=== PATIENT | female | born 1965 | race African-American/Black ===

== ENCOUNTER 2019-08-05 05:57 | Inpatient (IN) ==
[2019-08-05] MEDS ORDERED: NITROGLYCERIN TOP ONE (06:19)
[2019-08-05] MEDS ORDERED: ZOFRAN IV ONE (06:19)
[2019-08-05] MEDS ORDERED: APRESOLINE IV ONE (06:19)
[2019-08-05] MEDS ORDERED: MORPHINE IV ONE (06:19)
[2019-08-05] MEDS ORDERED: LABETALOL IV ONE (06:19)
--- NOTE | 2019-08-05 06:28 | EKG Report ---
Test Performed on : 08/05/2019 06:18:17 AM Test Reason : CP, HTN Blood Pressure : / mmHG Vent. Rate : 088 BPM Atrial Rate : 088 BPM P-R Int : 126 ms QRS Dur : 084 ms QT Int : 350 ms P-R-T Axes : 081 -52 113 degrees QTc Int : 423 ms Normal sinus rhythm. Biatrial enlargement Left axis deviation Pulmonary disease pattern Left ventricular hypertrophy ST & Marked T wave abnormality, consider anterolateral ischemia Abnormal ECG When compared with ECG of 03-AUG-2019 07:26, (Unconfirmed) Incomplete right bundle branch block is no longer present Unconfirmed Result
--- NOTE | 2019-08-05 06:30 | PROVIDER DOCUMENTATION ---
HPI-Chest Pain - General Chief Complaint: Chest Pain Stated Complaint: chest pain Time Seen by Provider: 08/05/19 06:06 Source: patient Allergies/Adverse Reactions: Patient Allergies Allergy/AdvReac Type Severity Reaction Status Date / Time aspirin Allergy RASH Verified 08/05/19 06:28 Home Medications: Home Medication List Medication Instructions Recorded Confirmed Last Taken Type Hydrochlorothiazide 25 mg PO DAILY #30 tab 08/03/19 08/05/19 Unknown Rx - History of Present Illness-CP Nature of Presenting Problem: C/O CP intermittent for about 3-4 days, gradually getting worse, associated with new, severe global headache and some left arm and left leg heaviness over the last 24 hours. CP is a throbbing/stabbing pain, intermittent, lasting a few seconds at the time, made worse by exertion and coughing. It is non-radiating. Cough is productive of clear/frothy sputum, no hemoptysis. No fever/chills, anastasiya sea/vomiting. Never had these symptoms before. Came to ER 2 days ago for similar symptoms, found to be very hypertensive, started on HCTZ and lisinopril. Symptoms have gradually gotten worse. No numbness/tingling. There is some shortness of breath. No orthopnea. No PND. No diaphoresis or vomiting. States whatever color drink she drinks, that is the color of her sputum. No one is sick at home. Location: reports: substernal Chest Pain Radiation: reports: no radiation Quality of Pain: reports: stabbing, throbbing Severity in ED: severe Onset/Duration: 5 days ago Timing: still present, intermittent Context/Activities at Onset: reports: light activity Modifying Factors: improves with: nothing. worse with: coughing, movement Associated Symptoms: reports: headache, shortness of breath. denies: abdominal pain, back pain, diaphoresis, dizziness, edema, fatigue, fever/chills, heartburn, nausea, rash, swelling/lump in chest, syncope, vomiting, weakness Nitro Today/Relief: no nitro taken today Aspirin Treatment Today: no aspirin today Prior Chest Pain/Cardiac Workup: reports: no prior cardiac workup Similar Symptoms Previously?: Yes (2 days ago) Recently Seen Here or By Another Healthcare Provider: Yes (2 days ago here) Review of Systems - Adult - REVIEW OF SYSTEMS - ADULT Constitutional: reports: no symptoms reported Eyes: reports: no symptoms reported Ears, Nose, Mouth & Throat: reports: no symptoms reported Cardiovascular: reports: see HPI, chest pain. denies: edema, heart murmur, irregular heart rate, orthopnea, palpitations, poor circulation, PND, syncope Respiratory: reports: see HPI, cough, dyspnea on exertion, excessive sputum production, pleurisy, shortness of breath. denies: chronic cough, hemoptysis, wheezing Gastrointestinal: reports: no symptoms reported Genitourinary: reports: no symptoms reported Musculoskeletal: reports: muscle aches (pain shooting from groin down left leg x 2 days). denies: bone pain, back pain Integumentary: reports: no symptoms reported Neurological: reports: see HPI, headache/migraines, other (heaviness to left arm and leg). denies: ataxia, dizziness/vertigo, loss of balance, numbness, paresthesia, seizure, slurred speech, syncope, tremors Psychiatric: reports: no symptoms reported Endocrine: reports: no symptoms reported Hematologic/Lymphatic: reports: no symptoms reported Allergic/Immunologic: reports: no symptoms reported All Other Systems: Reviewed and Negative Past History - Adult - PAST MEDICAL HISTORY-ADULT Review of Records: reports: Old Records Reviewed, Nursing Assessment Review, Medications Reviewed, Social history reviewed & non-contributory. Major Childhood Illnesses: reports: denies history Cardiovascular: reports: HTN Respiratory: reports: denies history Gastrointestinal: reports: denies history Obstetrical/Gynecological: reports: denies history Genitourinary: reports: denies history Musculoskeletal: reports: denies history Neurological: reports: denies history Psychiatric: reports: denies history Endocrine/Immune: reports: denies history Other Conditions: reports: denies history - PRIOR SURGERIES/PROCEDURES Surgical/Procedure History: reports: appendectomy, other (mastectomy) - IMMUNIZATION STATUS Childhood Immunizations: UTD Flu Vaccine: NUTD - FAMILY HISTORY Family History: diabetes (mother and sister), CAD over 55 yo (mother), CAD under 55yo (sister at 40), CVA/TIA (mother and sister), HTN - SOCIAL HISTORY Smoking: non-smoker Substance Use: none/never Alcohol Use Frequency: never Living Situation: family Physical Exam-General - PHYSICAL EXAM-ADULT Initial Vital Signs Reviewed: Yes (Hypertensive, tachycardic) - CONSTITUTIONAL General Appearance: alert, moderate distress, thin, anxious - EYES Eyes: PERRL/EOMI, pink conjunctivae - HEAD, EARS, NOSE, MOUTH & THROAT HENMT: normocephalic/atraumatic, moist mucous membranes, pharynx normal. negative: hearing deficit, frontal tenderness, maxillary tenderness - NECK Neck: non-tender, full range of motion, supple, normal inspection. negative: meningismus - RESPIRATORY Respiratory: chest non-tender, lungs clear, normal breath sounds, no pleuratic chest pain, no respiratory distress, no accessory muscle use - CARDIOVASCULAR Cardiovascular: normal peripheral pulses, regular rate, rhythm, no edema, no JVD , no murmur, tachycardia, gallop/S3, PMI displaced laterally - GASTROINTESTINAL (ABDOMEN) Abdominal Exam: normal bowel sounds, non tender, soft, no organomegaly, no pulsatile mass - LYMPHATIC Lymphatic: no adenopathy - MUSCULOSKELETAL Back Exam: normal inspection, no CVA tenderness, no vertebral tenderness. negative: decreased range of motion Extremity: normal range of motion, non-tender, normal gait, normal inspection, no pedal edema, no calf tenderness, normal capillary refill Peripheral Pulses: radial (R): 3+, radial (L): 3+, dorsalis-pedis (R): 2+, dorsalis-pedis (L): 2+ - SKIN Integumentary: normal color, normal turgor, warm/dry - NEUROLOGIC Neurologic: cord tire builder II-XII nml as tested, grossly normal, no motor/sensory deficits - PSYCHIATRIC Psych/Mental Status: normal mood/affect, normal thought content, normal thought process, oriented x 3, anxious - HEART Score HEART Score: History: Slightly Suspicious HEART Score: ECG: Non-Specific Repolarization Disturbance/LBBB/PM HEART Score: Age: 45-65 Years HEART Score: Risk Factors for Atherosclerotic Disease: 1 or 2 Risk Factors HEART Score: Troponin: 1-3x Normal Limit Total HEART Score:: 4 Progress - PLAN OF CARE/RESULTS Result Diagrams: 08/05/19 06:14 08/05/19 06:14 - REASSESSMENT Reassessment #1 Time Reassessed: 08:00 (. She began with N/D on TYhurs, says is not able to keep anything down. Has had a dull lower abd pain since yest, waxes, wanes, nothing makes better nor worse. She denies fever, has had a headache since Sat. Has had a sharp L upper CP, intermittent since Sat. Episodes last ~5 min, nothing makes better, nor worse. pain from it radiates to L leg. She also says that L leg feels heavy, L arm feels numb. Has had SOB and, cough with some sputum since Sat. Heart RRR, lungs clear. BS are NL) - EKG 1 Time of EKG reading by physician:: 06:20 EKG Read and Signed by:: Lucien Chavarria EKG Interpretation (*Must complete 3 of following elements*): Abnormal Rate: 88 Rhythm: NSR [place]: left QRS: poor R wave progression, LVH TN Interval: normal ST Wave: non-specific ST changes (Downward T-Waves I, aVL, V4-V6)) Prior EKG Comparison: changes noted (slight improvement of T-wave changes present 08/03/19) 2 Time of EKG reading by physician:: 08:45 EKG Read and Signed by:: Jonathon Sandoval EKG Interpretation (*Must complete 3 of following elements*): Abnormal Rate: 81 Rhythm: NSR [place]: left QRS: RBB (partial), LVH Comments: increasd T wave inversion in v2-v6 - XRAY 1 XRAY Study: Chest Impression: Normal (EXAM: CHEST-PORTABLE HISTORY: CP, SOB TECHNIQUE: Single view of the chest was performed portably. COMPARISON: 08/03/2019 FINDINGS: There is cardiomegaly.. The pulmonary vasculature is not congested. No infiltrate, effusion, or pneumothorax is appreciated. IMPRESSION: Cardiomegaly. No acute cardiopulmonary abnormality is identified. Electronically signed by Aleshia Scott 08/05/2019 8:32 AM 08/05/19 0832 [facility] erpreting Physician: Aleshia Scott MD Dictated Date/Time: 08/05/19 0831 cc: Lucien Chavarria MD; Evangelista Sánchez MD) - CT/MRI 1 CT Study: Head Impression: Normal (EXAM: CT HEAD W/O CONTRAST HISTORY: severe headache, left side feels funny, HTN TECHNIQUE: Images were obtained from the skull base to vertex without IV contrast as per standard protocol. This exam was performed using automated exposure control, adjustment of mA or kV according to patient size, and/or use of iterative reconstruction technique. COMPARISON: None. Extra-axial spaces: Normal. No hematoma is appreciated. Ventricular system /subarachnoid spaces/cisterns: Unremarkable. No hydrocephalus. No hemorrhage is appreciated. Cerebral parenchyma: Unremarkable. No hemorrhage is appreciated. Midline shift: None. Cerebellum/Brain stem: Unremarkable. Calvarium: No fracture is identified. Paranasal sinuses and mastoid air cells: No significant opacification. Visualized orbits: Normal. IMPRESSION: No acute intracranial abnormality is appreciated. Electronically signed by Aleshia Scott 08/05/2019 8:16 AM 08/05/19 0816 Interpreting Physician: Aleshia Scott MD Dictated Date/Time: 08/05/19 0815 cc: Lucien Chavarria MD; Evangelista Sánchez MD) 2 CT Study: Angiogram Impression: Normal (EXAM: CT ANGIOGRAM THORAX HISTORY: Severe accelerated HTN and CP TECHNIQUE: Images were obtained from the lung apices through bases as per standard protocol. This exam was performed using automated exposure control, adjustment of mA or kV according to patient size, and/or use of iterative reconstruction technique. 3-D postprocessing with MIPS. COMPARISON: None. FINDINGS: Mediastinum: The heart size appears normal. There is marked left ventricular wall thickening. No pericardial effusion is appreciated. No pathologically enlarged lymph nodes are identified. No aortic aneurysm. There is no evidence for aortic dissection. No hilar lymphadenopathy. Pulmonary parenchyma: No nodules or masses are appreciated. No focal infiltrates. Nonspecific increased attenuation is noted within the bilateral apices. There are linear areas of increased attenuation peripheral right upper lobe, superior left lower lobe, and left lower lobe there are nonspecific, nodular groundglass infiltrates posterior right lower. Pleura: There are no pleural effusions. Bones: No fracture or destructive lesion is identified. Images of the upper abdomen reveal marked hepatic steatosis. IMPRESSION: No evidence for aortic aneurysm or dissection. Marked left ventricular hypertrophy. Groundglass, nodular infiltrate right lower lobe. Marked hepatic steatosis . Electronically signed by Aleshia Scott 08/05/2019 8:24 AM 08/05/19 0824 Interpreting Physician: Aleshia Scott MD Dictated Date/Time: 08/05/19 0817 cc: Lucien Chavarria MD; Evangelista Sánchez MD) - CONSULTS/PCP/HOSPITALIST Notification #1 *Consult/PCP/Hospitalist*: Rogers Time Discussed: 10:55 Consult Disposition: Will see in ED - CHANGE OF SHIFT REPORT (ED Provider) 1 Report Given and Care Transferred to:: Dr. Sandoval Time of Transfer: 07:00 Items Pending: Labs, XRAY Results, CT/MRI Results, Other (control of BP) Departure - Departure Date of Disposition Decision: 08/05/19 Time of Disposition Decision: 10:55 DIAGNOSIS: Chest pain Qualifiers: Chest pain type: unspecified Qualified Code(s): R07.9 - Chest pain, unspecified Hypertension Qualifiers: Hypertension type: unspecified Qualified Code(s): I10 - Essential (primary) hypertension Rhabdomyolysis Qualifiers: Rhabdomyolysis type: non-traumatic Qualified Code(s): M62.82 - Rhabdomyolysis Disposition: ADMITTED INPATIENT 09 Certified Medical Emergency: Emergent Condition: Good - Critical Care Note This patient required my direct & personal management of CC.: No Attestation - Physician/ PANCHO Attestation Patient care was provided by Advanced Practice Provider:: No The physician spent face to face time with patient:: Yes Advanced Practice Provider documentation review:: Supervising physician onsite and consulted in the evaluation and care of this patient. The physician did have a face to face encounter with the patient. - NIH Stroke Scale NIH Type: Initial Evaluation Level of Consciousness: 0-Alert LOC Questions (ask month and age): 0-Answers Both Correctly LOC Commands (ask to open & close eyes;make a fist, let go): 0-Obeys Both Correctly Best Gaze (horizontal eye movement): 0-Normal Visual (use finger movement, counting or visual threat): 0-No Visual Loss Facial Palsy (show teeth or raise eyebrows & close eyes tght: 0-Symmetrical Movement Motor Function-left arm: 0-Normal Motor Function-right arm: 0-Normal Motor Function-left le-Normal Motor Function-right le-Normal Limb Ataxia([id number], or heel to grider): 0-No Ataxia Sensory(pin prick to face,arms,trunk,legs-compare side/side): 0-No Ataxia Best Language(name item/read sentence.Ex-Down to Earth): 0-No Aphasia Dysarthria(Pt read words or say words Ex.Mama,Tip-Top,Thanks: 0-Normal Articulation Extinction and Inattention: 0-Normal NIH Total Score: 0 Modified [place] Score Criteria: 0-no symptoms
[2019-08-05 06:39] LABS: BASO# 0.01 X1000 (0.0-0.2); BASO% 0.3 % (0.0-0.8); HEMATOCRIT 50.2 % (37.0-47.0); HEMOGLOBIN 16.3 g/dL (12.0-16.0); LYMPH# 1.13 X1000 (1.2-3.4); LYMPH% 32.8 % (20.5-51.1); MCH 31.3 PG (27-31); MCHC 32.5 g/dL (33-37); MCV 96.4 FL (81-99); MONO# 0.47 X1000 (0.11-0.59); MONO% 13.6 % (1.7-9.3); MPV 10.9 FL (7.4-10.4); NEUT# 1.84 X1000 (1.4-6.5); NEUT% 53.3 % (42.2-75.2); PLT 85 X1000 (130-400); RBC 5.21 XMIL (4.2-5.4); RDW 13.3 % (11.5-14.5); WBC 3.45 X1000 (4.8-10.8)
[2019-08-05 06:43] LABS: INR 0.91; PROTIME 12.7 Seconds (11.0-16.0)
[2019-08-05 06:44] LABS: PTT 25.6 Seconds (22.3-41.8)
[2019-08-05 06:55] LABS: ALBUMIN 4.7 g/dL (3.5-5.0); CALCIUM 10.3 mg/dL (8.8-10.2); MAGNESIUM 2.1 mg/dL (1.5-2.7); POTASSIUM 3.3 mmol/L (3.5-5.1); TOTAL BILIRUBIN 0.7 mg/dL (0.20-1.00); TOTAL PROTEIN 8.2 g/dL (6.3-8.3)
[2019-08-05 07:11] LABS: CK INDEX 0.1 (0.0-2.5); CK-MB 1.64 ng/mL (0.0-5.0)
[2019-08-05 07:11] LABS: INFLUENZA A NEGATIVE (NEGATIVE); INFLUENZA B NEGATIVE (NEGATIVE)
[2019-08-05] MEDS ORDERED: LABETALOL ONE (07:35)
[2019-08-05] MEDS ORDERED: REGLAN IV ONE (08:01)
[2019-08-05] MEDS ORDERED: NS 1,000 ML IV ONE (08:02)
--- NOTE | 2019-08-05 08:18 | Diag Imaging Result Doc PS360 ---
EXAM: CT HEAD W/O CONTRAST HISTORY: severe headache, left side feels funny, HTN TECHNIQUE: Images were obtained from the skull base to vertex without IV contrast as per standard protocol. This exam was performed using automated exposure control, adjustment of mA or kV according to patient size, and/or use of iterative reconstruction technique. COMPARISON: None. Extra-axial spaces: Normal. No hematoma is appreciated. Ventricular system /subarachnoid spaces/cisterns: Unremarkable. No hydrocephalus. No hemorrhage is appreciated. Cerebral parenchyma: Unremarkable. No hemorrhage is appreciated. Midline shift: None. Cerebellum/Brain stem: Unremarkable. Calvarium: No fracture is identified. Paranasal sinuses and mastoid air cells: No significant opacification. Visualized orbits: Normal. IMPRESSION: No acute intracranial abnormality is appreciated. Electronically signed by Aleshia Scott 08/05/2019 8:16 AM
--- NOTE | 2019-08-05 08:27 | Diag Imaging Result Doc PS360 ---
EXAM: CT ANGIOGRAM THORAX HISTORY: Severe accelerated HTN and CP TECHNIQUE: Images were obtained from the lung apices through bases as per standard protocol. This exam was performed using automated exposure control, adjustment of mA or kV according to patient size, and/or use of iterative reconstruction technique. 3-D postprocessing with MIPS. COMPARISON: None. FINDINGS: Mediastinum: The heart size appears normal. There is marked left ventricular wall thickening. No pericardial effusion is appreciated. No pathologically enlarged lymph nodes are identified. No aortic aneurysm. There is no evidence for aortic dissection. No hilar lymphadenopathy. Pulmonary parenchyma: No nodules or masses are appreciated. No focal infiltrates. Nonspecific increased attenuation is noted within the bilateral apices. There are linear areas of increased attenuation peripheral right upper lobe, superior left lower lobe, and left lower lobe there are nonspecific, nodular groundglass infiltrates posterior right lower. Pleura: There are no pleural effusions. Bones: No fracture or destructive lesion is identified. Images of the upper abdomen reveal marked hepatic steatosis. IMPRESSION: No evidence for aortic aneurysm or dissection. Marked left ventricular hypertrophy. Groundglass, nodular infiltrate right lower lobe. Marked hepatic steatosis . Electronically signed by Aleshia Scott 08/05/2019 8:24 AM
--- NOTE | 2019-08-05 08:35 | Diag Imaging Result Doc PS360 ---
EXAM: CHEST-PORTABLE HISTORY: CP, SOB TECHNIQUE: Single view of the chest was performed portably. COMPARISON: 08/03/2019 FINDINGS: There is cardiomegaly.. The pulmonary vasculature is not congested. No infiltrate, effusion, or pneumothorax is appreciated. IMPRESSION: Cardiomegaly. No acute cardiopulmonary abnormality is identified. Electronically signed by Aleshia Scott 08/05/2019 8:32 AM
[2019-08-05 08:45] LABS: URINE SOURCE CLEAN CATCH
[2019-08-05 08:50] LABS: BILIRUBIN URINE NEGATIVE (NEGATIVE); BLOOD URINE TRACE (NEGATIVE); COLOR YELLOW; GLUCOSE URINE NEGATIVE (NEGATIVE); KETONE URINE 20 mg/dL (NEGATIVE); LEUKOCYTES URINE NEGATIVE (NEGATIVE); NITRITE URINE NEGATIVE (NEGATIVE); PH URINE 6.5; PROTEIN URINE 70 mg/dL (NEGATIVE); TURBIDITY URINE CLEAR (CLEAR); UROBILINOGEN URINE NORMAL (NORMAL)
[2019-08-05 08:51] LABS: UR EPITHELIAL CELLS <10 /HPF (<10); URINE BACTERIA NEGATIVE /HPF; URINE RBC <10 /HPF (<10); URINE WBC <10 /HPF (<10)
[2019-08-05 09:02] LABS: UR AMPHETAMINES QUAL NONE DETECTED (NONE DETECT)
[2019-08-05 09:03] LABS: UR BARBITUATES QUAL NONE DETECTED (NONE DETECT); UR BENZODIAZEPIN QUAL NONE DETECTED (NONE DETECT); UR CANNABINOIDS QUAL PRESUMPTIVE POSITIVE (NONE DETECT); UR COCAINE QUAL NONE DETECTED (NONE DETECT); UR METHADONE QUAL NONE DETECTED (NONE DETECT); UR METHAMPHETAMINE QUAL NONE DETECTED (NONE DETECT); UR OPIATES QUAL PRESUMPTIVE POSITIVE (NONE DETECT); UR OXYCODONE QUAL NONE DETECTED (NONE DETECT); UR PCP QUAL NONE DETECTED (NONE DETECT); UR PROPOXYPHENE QUAL NONE DETECTED (NONE DETECT); UR TCA QUAL NONE DETECTED (NONE DETECT)
--- NOTE | 2019-08-05 09:05 | EKG Report ---
Test Performed on : 08/05/2019 08:42:37 AM Test Reason : repeat Blood Pressure : / mmHG Vent. Rate : 081 BPM Atrial Rate : 081 BPM P-R Int : 130 ms QRS Dur : 096 ms QT Int : 396 ms P-R-T Axes : 067 -52 141 degrees QTc Int : 460 ms Normal sinus rhythm. Biatrial enlargement Left axis deviation Incomplete right bundle branch block Left ventricular hypertrophy with repolarization abnormality Abnormal ECG When compared with ECG of 05-AUG-2019 06:18, (Unconfirmed) Nonspecific T wave abnormality now evident in Inferior leads Confirmed by Bjorn Dunham MD ([id number]) on 08/05/2019 6:02:29 PM
[2019-08-05 09:18] LABS: SP GRAVITY URINE 1.005
[2019-08-05 09:54] LABS: CK INDEX 0.1 (0.0-2.5); CK-MB 1.5 ng/mL (0.0-5.0)
[2019-08-05] MEDS ORDERED: LOVENOX SUBQ SCH (12:52)
[2019-08-05] MEDS ORDERED: ZOFRAN IV PRN (12:52)
[2019-08-05] MEDS ORDERED: PRINIVIL PO SCH (12:52)
[2019-08-05] MEDS ORDERED: KLOR-CON PO ONE (13:15)
[2019-08-05] MEDS: APRESOLINE IV PRN (13:27)
[2019-08-05] MEDS: NS 1,000 ML IV SCH ×2 (13:28→21:44)
--- NOTE | 2019-08-05 14:14 | HISTORY AND PHYSICAL ---
PRIMARY CARE PHYSICIAN: Dr. Evangelista Sánchez. CHIEF COMPLAINT: Intermittent chest pain for the past 3 to 4 days with a severe headache, some left arm and leg heaviness, seen in the ER 2 days ago was found to be very hypertensive and was started on hydrochlorothiazide but patient states that she did not get that medication filled. HISTORY OF PRESENTING ILLNESS: This is a 53-year-old female who presents to [facility] ER with complaints of intermittent chest pain over the past 3 to 4 days associated with a new severe global headache, some left arm and left leg heaviness. States that the chest pain is nonradiating. She also had a cough. She notes that she was in the emergency room 2 nights ago and was found to have a blood pressure of 206/106 and was discharged home with a prescription for hydrochlorothiazide 25 mg p.o. daily. The patient states that she did not get this medication filled as she was having difficulty having access to a ride to pick it up and that her daughter was supposed to pick it up today but she came to the emergency room as the symptoms worsened. When she arrived she was noted to have a blood pressure today of 191/130 that got as high as 213/138, was given multiple medications in the emergency room including some labetalol 20 mg IV x1 and nitroglycerin half an inch topically x1, morphine 4 mg IV x1. Blood pressure did come down to 158/100 but has now come back up to 207/111 so she will be admitted for further evaluation and treatment. PAST MEDICAL HISTORY: Hypertension. PAST SURGICAL HISTORY: Of an appendectomy, hysterectomy and a hernia repair. FAMILY HISTORY: Heart disease, hypertension, diabetes, cancer and CVA. SOCIAL HISTORY: She does currently live with family, denies any tobacco, alcohol or illicit drug use. ALLERGIES: Aspirin. HOME MEDICATIONS: She had her prescription for hydrochlorothiazide 25 mg p.o. daily but had not gotten it filled that she received in the emergency room 2 days ago so she has not been taking any medications on a routine basis. LABORATORY DATA: Showed a white blood cell count of 3.45, hemoglobin 16.3, hematocrit 50.2, platelets 85,000, PT and INR 12.7 and 0.91. Sodium 141, potassium 3.3, chloride 98, CO2 24, BUN of 27, creatinine 1, glucose 112, magnesium of 2.1, creatine kinase of 1532 with a CK-MB of 1.64. Troponin T high sensitivity of 20. Repeat CK was 1274, CK-MB of 1.50, troponin T has sensitivity was 20, ProBNP of 822, plasma lactate of 2, TSH 1.72. Urinalysis was negative. Urine drug screen was presumptive positive for opiates and cannabinoid and influenza A and B were both negative. We did a head CT that showed impression of no acute intracranial abnormality appreciated. Chest and thorax CTA showed impression of no evidence of aortic aneurysm or dissection, marked left ventricular hypertrophy, ground-glass nodular infiltrate in the right lower lobe and a marked hepatic steatosis. EKG showed normal sinus rhythm at 81. REVIEW OF SYSTEMS: She denied any fever, chills, blurred vision. She did have some lightheadedness, dizziness, headache, chest pain that was nonradiating, a productive cough. Denied any abdominal pain, constipation, diarrhea, burning or hurting with urination. PHYSICAL EXAMINATION: On arrival she had a temperature of 98.6 degrees, pulse 127, respirations 20, blood pressure 191/130, saturating 98% on room air. Currently blood pressure is noted to be 207/111, we are obtaining a manual at this time to verify that is correct as it had come down in the emergency room to 158/100. GENERAL: This is a 53-year-old female who is lying in the bed and answers questions appropriately. HEENT: Normocephalic, atraumatic. Normal ENT inspection. Oropharynx and nares are clear. Pupils are equal, round, reactive to light, accommodation. Extraocular movements are intact. NECK: Normal inspection, normal range of motion. LUNGS: Clear to auscultation bilaterally with equal lung expansion and chest wall movement. HEART: Regular rate and rhythm. No murmurs, rubs, or gallops. ABDOMEN: Soft, nontender, nondistended. Bowel sounds are present x4 quadrants. MUSCULOSKELETAL: She had 5/5 strength x4 extremities. NEUROLOGICAL: The cranial nerves 2-12 appear grossly intact. ASSESSMENT: 1. Chest pain. 2. Uncontrolled hypertension. 3. Rhabdomyolysis. 4. Mild hypokalemia. 5. Dehydration. 6. Polysubstance abuse with positive opiates and THC. OUR PLAN: She was admitted to the medical unit placed on telemetry, placed on a healthy heart diet. Will obtain an echocardiogram in the a.m. Will give her Lovenox 40 mg subcu q.24 for DVT prophylaxis, hydralazine 10 mg IV q.4 hours p.r.n. for a systolic blood pressure greater than 190 diastolic greater than 100, hydrochlorothiazide 25 mg p.o. daily, will start her on lisinopril 10 mg p.o. daily, normal saline 125 mL an hour, potassium 40 mEq p.o. x1 now. Will recheck a CPK and a CBC, BMP in the a.m. Further orders after seen by attending. Dictated by HIRA Juarez for Kenneth Lorenzo MD cc: MD Kenneth Lamb MD
[2019-08-05] MEDS: TYLENOL PO PRN ×2 (16:17→21:59)
--- NOTE | 2019-08-05 18:58 | HISTORY AND PHYSICAL ---
ADDENDUM: Patient seen and examined by myself. Full note dictated and discussed with nurse practitioner. Patient presented to the hospital with chest pain three or four days, some left arm numbness and leg heaviness as well. Does have a history of hypertension. Currently, she is pleasant. She is awake. She is in no distress. Her blood pressures are markedly elevated. She apparently was given hydrochlorothiazide and lisinopril and appears those have not been filled. We are going to admit her to the hospital, control her blood pressures, rule out IN and will follow. cc: Kenneth Lorenzo MD
[2019-08-06] MEDS: NS 1,000 ML IV SCH (04:54)
[2019-08-06] MEDS: TYLENOL PO PRN ×2 (04:54→13:50)
[2019-08-06 07:04] LABS: BASO# 0.02 X1000 (0.0-0.2); BASO% 0.5 % (0.0-0.8); EOS# 0.01 X1000 (0.0-0.7); EOS% 0.3 % (0.0-10.0); HEMATOCRIT 39.7 % (37.0-47.0); HEMOGLOBIN 12.6 g/dL (12.0-16.0); LYMPH# 0.89 X1000 (1.2-3.4); LYMPH% 22.3 % (20.5-51.1); MCHC 31.7 g/dL (33-37); MCV 97.5 FL (81-99); MONO# 0.43 X1000 (0.11-0.59); MONO% 10.8 % (1.7-9.3); MPV 10.1 FL (7.4-10.4); NEUT# 2.65 X1000 (1.4-6.5); NEUT% 66.1 % (42.2-75.2); PLT 54 X1000 (130-400); RBC 4.07 XMIL (4.2-5.4); RDW 13.2 % (11.5-14.5)
[2019-08-06] MEDS: HYDROCHLOROTHIAZIDE PO SCH (08:07)
[2019-08-06] MEDS ORDERED: NORCO-7.5 PO ONE (08:16)
[2019-08-06] MEDS: APRESOLINE IV PRN ×2 (08:17→14:57)
[2019-08-06] MEDS ORDERED: PRINIVIL PO SCH (09:00)
[2019-08-06] MEDS ORDERED: PRINIVIL PO ONE (09:12)
[2019-08-06 09:13] LABS: AGAP 11; BUN 13 mg/dL (8-22); CALCIUM 8.7 mg/dL (8.8-10.2); CHLORIDE 106 mmol/L (98-107); CK PROFILE 1025 U/L (24-173); COSMO 281; CREATININE 0.7 mg/dL (0.5-0.9); ESTIMATED GFR > 60; GLUCOSE 98 mg/dL (70-104); POTASSIUM 3.1 mmol/L (3.5-5.1); SODIUM 141 mmol/L (136-145); TCO2 24 mmol/L (25-35)
[2019-08-06 09:35] LABS: CK INDEX 0.2 (0.0-2.5); CK-MB 2.11 ng/mL (0.0-5.0)
[2019-08-06] MEDS ORDERED: APRESOLINE PO SCH (13:00)
[2019-08-06] MEDS ORDERED: APRESOLINE PO ONE (15:37)
[2019-08-06] MEDS ORDERED: NORVASC PO ONE (15:38)
[2019-08-06] MEDS ORDERED: TOPROL XL PO ONE (15:45)
[2019-08-06 18:26] LABS: HEMOGLOBIN 14.6 g/dL (12.0-16.0); MCH 31.8 PG (27-31); MCHC 33.2 g/dL (33-37); MCV 95.9 FL (81-99); RBC 4.59 XMIL (4.2-5.4); RDW 13.2 % (11.5-14.5); WBC 9.45 X1000 (4.8-10.8)
--- NOTE | 2019-08-06 18:46 | PROGRESS NOTE ---
DATE: 08/06/2019 SUBJECTIVE: The patient this morning states she feels a little nauseous. She did have some lower blood pressures last night in the 140s to 150 systolic. Blood pressures upon admission were 238/130. Currently, they are dramatically improved, although, still elevated in the 170s to 190 range. PHYSICAL EXAM: Vital signs: Temperature 98.6 degrees, pulse 78, respiratory 20, BP 170/85. General: The patient is sitting up in the bed. She is in no current distress. She is awake, alert, and oriented. Denies any chest pain. Denies any focal weakness. HEENT: Normocephalic. Neck: Supple. Cardiovascular: Regular rate. Chest: Clear, nonlabored. Abdomen: Soft. Extremities: Moves all extremities. Neurologic: No changes. ASSESSMENT: Malignant hypertension, continues to improve. We certainly do not want to get her blood pressures completely back to normal immediately, as it has been some time since she has had a normal blood pressure. We will continue to decrease her medications. We are going to increase hydralazine, lisinopril and add Norvasc and we will follow. cc: Kenneth Lorenzo MD
[2019-08-06] MEDS ORDERED: TOPROL XL PO SCH (21:00)
[2019-08-07] MEDS: APRESOLINE PO SCH ×4 (02:40→22:19)
[2019-08-07] MEDS: NORVASC PO SCH ×3 (02:40→22:19)
[2019-08-07] MEDS: PRINIVIL PO SCH ×3 (02:41→22:19)
[2019-08-07 06:05] LABS: HEMATOCRIT 46.2 % (37.0-47.0); MCH 31.1 PG (27-31); MCHC 32.5 g/dL (33-37); MCV 95.7 FL (81-99); MPV 10.9 FL (7.4-10.4); RBC 4.83 XMIL (4.2-5.4); RDW 13.3 % (11.5-14.5); WBC 6.95 X1000 (4.8-10.8)
[2019-08-07 06:33] LABS: AGAP 17; ALBUMIN 4.1 g/dL (3.5-5.0); ALKALINE PHOSPHATASE 57 U/L (32-104); BUN 12 mg/dL (8-22); CALCIUM 9.8 mg/dL (8.8-10.2); CHLORIDE 98 mmol/L (98-107); COSMO 281; CREATININE 0.7 mg/dL (0.5-0.9); ESTIMATED GFR > 60; GLUCOSE 102 mg/dL (70-104); GOT 49 U/L (10-30); GPT 23 U/L (10-36); MAGNESIUM 1.9 mg/dL (1.5-2.7); POTASSIUM 2.8 mmol/L (3.5-5.1); SODIUM 141 mmol/L (136-145); TCO2 27 mmol/L (25-35); TOTAL PROTEIN 7.4 g/dL (6.3-8.3)
[2019-08-07] MEDS ORDERED: KLOR-CON PO ONE (06:37)
[2019-08-07 07:15] LABS: CK INDEX 0.6 (0.0-2.5); CK-MB 5.21 ng/mL (0.0-5.0)
[2019-08-07] MEDS: TOPROL XL PO SCH ×2 (09:05→22:19)
[2019-08-07] MEDS: KLOR-CON PO SCH (09:05)
[2019-08-07] MEDS: HYDROCHLOROTHIAZIDE PO SCH (09:05)
--- NOTE | 2019-08-07 15:22 | EKG Report ---
Test Performed on : 08/07/2019 3:08:02 PM Test Reason : RYTHEM CHANGE Blood Pressure : / mmHG Vent. Rate : 115 BPM Atrial Rate : 115 BPM P-R Int : 118 ms QRS Dur : 092 ms QT Int : 334 ms P-R-T Axes : 077 -62 090 degrees QTc Int : 462 ms Sinus tachycardia. Biatrial enlargement Left axis deviation Incomplete right bundle branch block Septal infarct , age undetermined T wave abnormality, consider anterolateral ischemia Abnormal ECG When compared with ECG of 05-AUG-2019 08:42, Septal infarct is now present Non-specific change in ST segment in Anterior leads Nonspecific T wave abnormality no longer evident in Inferior leads T wave inversion less evident in Anterior leads Confirmed by Kavin Caballero MD ([id number]) on 08/10/2019 7:32:38 AM
[2019-08-07] MEDS ORDERED: NITROGLYCERIN TOP PRN (16:13)
[2019-08-07 16:25] LABS: CK INDEX 0.7 (0.0-2.5); CK-MB 5.16 ng/mL (0.0-5.0)
--- NOTE | 2019-08-07 17:07 | Diag Imaging Result Doc PS360 ---
EXAM: US DUPLEX RENAL ARTY/VEIN LMTD HISTORY: recalcitrant BP TECHNIQUE: Duplex renal arterial Doppler ultrasound COMPARISON: None. FINDINGS: The right kidney measures 10.3 x 4.3 x 3.7 cm. Normal renal echogenicity. Mild cortical thinning. Mild fullness to the renal pelvis. Segmental arterial pressures obtained. The right renal artery ratio is 1.14. The resistive index is 0.52. The left kidney measures 9.6 x 3.4 x 4.5 cm. Normal renal echotexture. Mild cortical thinning. No stone or hydronephrosis. No renal mass. Segmental arterial pressures obtained. The left renal artery ratio is 1.41. The resistive index is 0.71. IMPRESSION: No renal artery stenosis. There is mild bilateral cortical thinning. Electronically signed by Abdulaziz Patel 08/07/2019 5:04 PM
--- NOTE | 2019-08-07 20:03 | PROGRESS NOTE ---
DATE: 08/07/2019 SUBJECTIVE: Patient this morning notes that she is feeling a little bit better. This afternoon she did have some chest pain. Thankfully her enzymes are negative. OBJECTIVE: Vital signs: Temperature 98 degrees. Pulse has been elevated at 111 and 117. Blood pressures have been between 129/77 and 163/105. HEENT: Normocephalic. Neck: Supple. Cardiovascular: Regular rate. Chest: Clear. Abdomen: Soft. Extremities: Moves all extremities. ASSESSMENT: 1. Supraventricular tachycardia. 2. Malignant hypertension, although blood pressure currently was 129/77, which is markedly improved. 3. Rhabdomyolysis, resolved. CPK of 900. 4. Hypokalemia. We will replace. 5. Polysubstance abuse with positive opiates and THC. PLAN: Certainly wonder if her tachycardia is due to her current anxiety. She is on metoprolol 50 b.i.d., lisinopril 20 b.i.d., hydralazine 50 t.i.d. and amlodipine 50 b.i.d. We are not going to adjust currently, but we will follow. If she continues to have elevated heart rate, we will ask Cardiology for assistance. We will check an echocardiogram in the morning and we will follow now that her blood pressures are improved. cc: Kenneth Lorenzo MD
[2019-08-08 06:07] LABS: HEMATOCRIT 45.2 % (37.0-47.0); HEMOGLOBIN 14.9 g/dL (12.0-16.0); MCH 31.6 PG (27-31); MCV 95.8 FL (81-99); MPV 11.8 FL (7.4-10.4); RBC 4.72 XMIL (4.2-5.4); RDW 13.5 % (11.5-14.5); WBC 9.2 X1000 (4.8-10.8)
[2019-08-08 06:35] LABS: AGAP 15; ALBUMIN 3.8 g/dL (3.5-5.0); ALKALINE PHOSPHATASE 53 U/L (32-104); BUN 25 mg/dL (8-22); CHLORIDE 99 mmol/L (98-107); COSMO 283; CREATININE 0.7 mg/dL (0.5-0.9); ESTIMATED GFR > 60; GLUCOSE 120 mg/dL (70-104); GOT 38 U/L (10-30); GPT 20 U/L (10-36); POTASSIUM 3.4 mmol/L (3.5-5.1); SODIUM 139 mmol/L (136-145); TCO2 26 mmol/L (25-35); TOTAL PROTEIN 7.5 g/dL (6.3-8.3)
[2019-08-08 07:28] VITALS: BP 141/86
[2019-08-08] MEDS: PRINIVIL PO SCH (08:28)
[2019-08-08] MEDS: APRESOLINE PO SCH ×2 (08:28→15:48)
[2019-08-08] MEDS: NORVASC PO SCH (08:28)
[2019-08-08] MEDS: KLOR-CON PO SCH (08:28)
[2019-08-08] MEDS: HYDROCHLOROTHIAZIDE PO SCH (08:28)
[2019-08-08] MEDS: TOPROL XL PO SCH (08:28)
--- NOTE | 2019-08-08 13:31 | ECHO REPORT ---
ORDER DATE: 08/06/2019 MEASUREMENTS: Septal thickness 1.9, left ventricular internal diameter in diastole 3.0, left ventricular posterior wall thickness 1.7, left ventricular internal diameter in systole 0.52, aortic root 2.9, left atrium 2.7. SUMMARY: 1. Adequate quality study. 2. Aortic valve is trileaflet and opens normally on 2-dimensional images. The peak gradient across the aortic valve is 14 mmHg. Mitral, tricuspid, and pulmonic valves are without evidence of structural abnormality with very mild mitral regurgitation and mild tricuspid regurgitation. The estimated systolic PA pressure by Doppler is 35 mmHg. The aortic root is normal in size. 3. Normal left ventricular chamber size with severe concentric left hypertrophy is demonstrated. The estimated left ventricular ejection fraction is greater than 75% with left ventricle appearing hyperdynamic. No regional wall motion abnormalities are evident. Doppler suggests grade 1 left ventricular diastolic dysfunction. The left atrium, right atrium, and right ventricle are normal in size with preserved right ventricular systolic function. 4. No pericardial effusion. 5. Appearance of inferior vena cava suggests normal central venous pressure. CONCLUSION: 1. Very mild mitral regurgitation. 2. Mild tricuspid regurgitation. 3. Severe concentric left hypertrophy with hyperdynamic left ventricle and estimated left ventricular ejection fraction greater than 75%. 4. Grade 1 left ventricular diastolic dysfunction. cc: MD Pearl Vaz CRNP
--- NOTE | 2019-08-08 17:03 | DISCHARGE SUMMARY ---
ADMISSION DATE: 08/05/2019 DISCHARGE DATE: PRIMARY CARE PHYSICIAN: Dr. Evangelista Sánchez. ADMISSION DIAGNOSES: 1. Chest pain. 2. Uncontrolled hypertension. 3. Rhabdomyolysis. 4. Mild hypokalemia. 5. Dehydration. 6. Polysubstance abuse with positive opiates and THC. DISCHARGE DIAGNOSES: 1. Supraventricular tachycardia, resolved. 2. Malignant hypertension. Markedly improved. 3. Rhabdomyolysis, resolved. 4. Hypokalemia, resolved. 5. Polysubstance abuse with positive opiates and THC. SUMMARY OF FINDINGS: This is a 53-year-old female who presented to the ER with complaints of intermittent chest pain over the past 3 to 4 days, now with a new severe global headache, some left arm and left leg heaviness. States the chest pain was nonradiating. She had been in the emergency room 2 nights prior to the , found to have a blood pressure of 206/106, was discharged home with a prescription of hydrochlorothiazide. Did not get that medication filled and when she arrived to the emergency room on the , she had a blood pressure of 191/130. It did get up as high as 213/138. She received multiple medications and it did come down to 158/100. She continued to have some spikes in her blood pressure after she was admitted, so we added Norvasc 5 mg p.o. b.i.d., hydralazine 50 mg p.o. t.i.d., continued the hydrochlorothiazide 25 mg p.o. daily and lisinopril 20 mg p.o. b.i.d. We did an echocardiogram on the that was read as an ejection fraction of 75% but had a grade 1 left ventricular diastolic dysfunction. Blood pressure has come down now to 141/86. She is feeling much better. Her rhabdomyolysis has improved. She had 3 troponins that were negative and it is now felt that she can safely be discharged home. DISCHARGE MEDICATIONS: Will include amlodipine 5 mg p.o. b.i.d. #60 with no refills, hydrochlorothiazide 25 mg p.o. daily, lisinopril 20 mg p.o. b.i.d. #60 with no refills, metoprolol 50 mg p.o. b.i.d. #60 with no refills. FOLLOW-UP: She will need to follow up with her primary care physician in the next 1 to 2 weeks and call their office for an appointment. This ends dictation on a 35 minute discharge. Dictated by HIRA Juarez for Kenneth Lorenzo MD cc: HIRA Juarez MD Malcolm R. Hendricks, MD
--- NOTE | 2019-08-08 21:27 | DISCHARGE SUMMARY ---
ADMISSION DATE: 08/05/2019 DISCHARGE DATE: 08/08/2019 ADDENDUM: Patient seen and examined by myself. Full note dictated and discussed with nurse practitioner. On discharge, patient's blood pressures are tremendously improved. Her most recent was 141/86 and 144/94 with previous one 129/76. We will continue her home blood pressure medications. Discussed with her again the importance of taking medications, avoiding stressful situations and following up with her primary care. cc: Kenneth Lorenzo MD
== END 2019-08-08 16:52 | disposition home or self-care (01) | DRG 305 ==
LOC: P.ED 05:57 → P.MEDSURG 12:33
PROVIDERS: ATTEND Family Medicine